=== PATIENT | female | born 1980 | race Caucasian/White ===

== ENCOUNTER 2017-04-08 11:31 | Emergency (ER) | payer MEDICAID ==
[~2017-04-08] VITALS: Ht 165.1 cm; Wt 70.9 kg
[~2017-04-08 11:31] MED LIST: BUTA1CAP59 PO; CYCL5TAB PO; DISALCID PO; GABA-827 PO; GABA300C10 PO; GABA800T2 PO; INDO50CA PO; LAMO150T PO; MECL-76 PO; ONDA8TAB12 PO; ROPI0.2537 PO; SALS750T11 PO; SERT50TA PO; SUMA100T4 PO; TRAZ100T15 PO
[2017-04-08 11:34] VITALS: BP 131/81
[2017-04-08] MEDS ORDERED: KETOROLAC 30 MG/1 ML ONE (12:33)
[2017-04-08] MEDS ORDERED: HYDROcodone/APAP 5/325 TABLET ONE (12:33)
[2017-04-08] MEDS ORDERED: HYDROcodone/APAP 5/325 TABLET PO PRN (13:00)
[2017-04-08] MEDS ORDERED: KETOROLAC 30 MG/1 ML IM ONE (13:00)
== END 2017-04-08 13:11 | disposition home or self-care (01) ==
LOC: ED 12:50
DX: M25.551 Pain in right hip (principal); F17.200 Nicotine dependence, unspecified, uncomplicated; G43.909 Migraine, unspecified, not intractable, without status migrainosus; Z90.49 Acquired absence of other specified parts of digestive tract
CPT/HCPCS: 73502; 96372; 99284; J1885

== ENCOUNTER 2017-05-01 14:18 | Emergency (ER) | payer MEDICAID ==
[~2017-05-01] VITALS: Ht 165.1 cm; Wt 68.5 kg
[~2017-05-01 14:18] MED LIST changes: -LAMO150T PO; +LAMO150T2 PO
[2017-05-01] MEDS ORDERED: ONDANSETRON ODT 4 MG ONE (18:30)
[2017-05-01] MEDS ORDERED: ACETAMINOPHEN 325 MG TABLET PO ONE (18:30)
[2017-05-01] MEDS ORDERED: ONDANSETRON ODT 4 MG PO ONE (18:30)
[2017-05-01] MEDS ORDERED: ACETAMINOPHEN 325 MG TABLET ONE (18:30)
[2017-05-01 18:34] VITALS: BP 132/82
== END 2017-05-01 18:36 | disposition home or self-care (01) ==
LOC: ED 16:49
DX: S06.0X1A Concussion with loss of consciousness of 30 minutes or less, initial encounter (principal); R58 Hemorrhage, not elsewhere classified; W01.0XXA Fall on same level from slipping, tripping and stumbling without subsequent striking against object, initial encounter; Y93.89 Activity, other specified; Y92.89 Other specified places as the place of occurrence of the external cause; Y99.9 Unspecified external cause status
CPT/HCPCS: 70450; 72125; 99284; Q0162

== ENCOUNTER 2018-02-07 13:42 | Emergency (ER) | payer MEDICAID ==
[~2018-02-07] VITALS: Ht 165.1 cm; Wt 70.5 kg
[~2018-02-07 13:42] MED LIST changes: -INDO50CA PO; +INDO50CA5 PO; -ROPI0.2537 PO; +ROPI0.254 PO; +TRAZ-137 PO; -TRAZ100T15 PO
[2018-02-07 13:58] VITALS: BP 119/80
[2018-02-07] MEDS ORDERED: KETOROLAC 30 MG/1 ML ONE (14:12)
[2018-02-07] MEDS ORDERED: SERT100T PO (14:22)
[2018-02-07] MEDS ORDERED: CARI350T PO (14:23)
[2018-02-07] MEDS ORDERED: CYCL5TAB PO (14:23)
[2018-02-07] MEDS ORDERED: ALBU0.63 NEB (14:24)
[2018-02-07] MEDS ORDERED: BACL20TA PO (14:24)
[2018-02-07] MEDS ORDERED: BUSP5TAB2 PO (14:24)
[2018-02-07] MEDS ORDERED: ONDA8TAB9 PO (14:24)
[2018-02-07] MEDS ORDERED: KETOROLAC 30 MG/1 ML IM ONE (14:30)
[2018-02-07 14:41] LABS: RAPID INFLUENZA A Negative (Negative); RAPID INFLUENZA B Negative (Negative)
== END 2018-02-07 15:00 | disposition home or self-care (01) ==
LOC: ED 14:45
DX: J00 Acute nasopharyngitis [common cold] (principal); J45.909 Unspecified asthma, uncomplicated; G43.909 Migraine, unspecified, not intractable, without status migrainosus
CPT/HCPCS: 71046; 87400; 96372; 99285; J1885

== ENCOUNTER 2018-02-12 11:25 | Emergency (ER) | payer MEDICAID ==
[~2018-02-12] VITALS: Ht 165.1 cm; Wt 71.8 kg
[~2018-02-12 11:25] MED LIST changes: +ALBU0.63 NEB; +BACL20TA PO; +BUSP5TAB2 PO; +CARI350T PO; +ONDA8TAB9 PO; +SERT100T PO
[2018-02-12] MEDS ORDERED: SODIUM CHLORIDE FLUSH 10ML SYR IVF ONE (12:00)
[2018-02-12] MEDS ORDERED: MORPHINE SULFATE 4 MG/ML, 1ML ONE ×2 (12:07→16:50)
[2018-02-12] MEDS: MORPHINE SULFATE 4 MG/ML, 1ML IVPush PRN ×2 (12:14→16:52)
[2018-02-12 12:19] LABS: BASOPHILS # (AUTO) 0.04 x10^3/uL (0-0.1); BASOPHILS % (AUTO) 1 % (0-1); EOSINOPHILS # (AUTO) 0.06 x10^3/uL (0-0.4); EOSINOPHILS % (AUTO) 1 % (1-7); LYMPHOCYTES # (AUTO) 4.17 x10^3/uL (1-3.4); LYMPHOCYTES % (AUTO) 47 % (22-44); MD NO; MEAN CORPUSCULAR HEMOGLOBIN 32.3 pg (27.0-34.8); MEAN CORPUSCULAR HGB CONC 34.5 g/dL (32.4-35.8); MEAN CORPUSCULAR VOLUME 93.5 fL (80-100); MEAN PLATELET VOLUME 7.7 fL (7.4-10.4); MONOCYTES # (AUTO) 0.69 x10^3/uL (0.2-0.8); MONOCYTES % (AUTO) 8 % (2-9); NEUTROPHILS # (AUTO) 3.85 x10^3/uL (1.8-6.8); NEUTROPHILS % (AUTO) 44 % (42-75); PLATELET COUNT 283 x10^3/uL (130-400); RED BLOOD COUNT 4.68 x10^6/uL (3.82-5.3); RED CELL DISTRIBUTION WIDTH 13.3 % (9.6-15.2)
[2018-02-12 12:27] LABS: ALANINE AMINOTRANSFERASE 62 U/L (12-78); ALBUMIN 3.5 g/dL (3.4-5.0); ANION GAP 6 mmol/L (5-15); CALCIUM 8.4 mg/dL (8.5-10.1); CHLORIDE 110 mmol/L (98-107); CREATININE 0.75 mg/dL (0.55-1.02)
[2018-02-12 12:29] LABS: ALKALINE PHOSPHATASE 49 U/L (45-117); BILIRUBIN,TOTAL 0.3 mg/dL (0.2-1.0); TOTAL PROTEIN 7.5 g/dL (6.4-8.2)
[2018-02-12] MEDS ORDERED: METOCLOPRAMIDE 5 MG/ML, 2ML IVPush ONE (12:30)
[2018-02-12] MEDS ORDERED: SODIUM CHLORIDE 0.9% 1,000ML IVBOLUS ONE (12:30)
[2018-02-12] MEDS ORDERED: METOCLOPRAMIDE 5 MG/ML, 2ML ONE (12:31)
[2018-02-12] MEDS ORDERED: KETOROLAC 30 MG/1 ML IVPush ONE (13:00)
[2018-02-12] MEDS ORDERED: KETOROLAC 30 MG/1 ML ONE (13:11)
[2018-02-12 15:59] LABS: CULTURE INDICATED? YES; MICROSCOPIC INDICATED
[2018-02-12 16:53] VITALS: BP 113/52
== END 2018-02-12 17:14 | disposition home or self-care (01) ==
LOC: ED 16:17
DX: N83.201 Unspecified ovarian cyst, right side (principal); J45.909 Unspecified asthma, uncomplicated; G43.909 Migraine, unspecified, not intractable, without status migrainosus; Z90.49 Acquired absence of other specified parts of digestive tract; F17.200 Nicotine dependence, unspecified, uncomplicated
CPT/HCPCS: 36415; 74176; 76830; 80053; 81001; 83690; 85025; 87077; 87086; 87186; 96374; 96375; 96376; 99285; J1885; J2765; J7030

== ENCOUNTER 2018-02-12 23:11 | Inpatient (IN) | payer MEDICAID ==
[~2018-02-12] VITALS: Ht 165.1 cm; Wt 77.5 kg
[2018-02-13] MEDS ORDERED: SODIUM CHLORIDE FLUSH 10ML SYR IVF ONE
[2018-02-13] MEDS ORDERED: METOCLOPRAMIDE 5 MG/ML, 2ML IVPush ONE
[2018-02-13] MEDS ORDERED: HYDROmorphone 2 MG/ML, 1ML ONE (00:03)
[2018-02-13] MEDS ORDERED: METOCLOPRAMIDE 5 MG/ML, 2ML ONE (00:03)
[2018-02-13] MEDS ORDERED: SODIUM CHLORIDE 0.9% 1,000 ML IV ONE (00:22)
[2018-02-13] MEDS ORDERED: SODIUM CHLORIDE FLUSH 10ML SYR IVF PRN (00:30)
[2018-02-13] MEDS ORDERED: HYDROmorphone 2 MG/ML, 1ML IVPush PRN ×2 (00:30)
[2018-02-13] MEDS ORDERED: ONDANSETRON 2MG/ML, 2ML IVPush PRN (00:30)
[2018-02-13 01:01] VITALS: BP 107/66
[2018-02-13 01:10] VITALS: BP 107/66
[2018-02-13] MEDS ORDERED: SODIUM CHLORIDE 0.9% 1,000 ML IV SCH ×2 (02:30→09:30)
[2018-02-13] MEDS: OXYcodone/APAP 5/325MG TABLET PO PRN ×5 (02:42→22:39)
[2018-02-13] MEDS ORDERED: ALBUTEROL SULFATE 2.5MG/0.5ML HOMEINH PRN (04:00)
[2018-02-13] MEDS: ONDANSETRON 8 MG TABLET PO PRN (08:26)
[2018-02-13] MEDS: SERTRALINE 100MG TABLET PO SCH (08:26)
[2018-02-13] MEDS: BACLOFEN 10 MG TABLET PO SCH (08:26)
[2018-02-13] MEDS: CYCLOBENZAPRINE 10 MG TABLET PO SCH (08:26)
[2018-02-13] MEDS: BUSPIRONE 5 MG TABLET PO SCH (08:26)
[2018-02-13 08:45] VITALS: BP 111/73
[2018-02-13] MEDS ORDERED: morphine SULFATE 10 MG/ML, 1ML IVPush PRN ×2 (13:00→17:00)
[2018-02-13 14:10] VITALS: BP 114/71
[2018-02-13] MEDS: CARISOPRODOL 350 MG TABLET PO SCH (19:53)
[2018-02-13] MEDS: morphine SULFATE 10 MG/ML, 1ML IVPush PRN (19:54)
[2018-02-13 20:00] VITALS: BP 118/74
[2018-02-13] MEDS: TRAZODONE 100MG TABLET PO PRN (22:39)
[2018-02-14 00:16] VITALS: BP 113/70
[2018-02-14] MEDS: ONDANSETRON 8 MG TABLET PO PRN (00:18)
[2018-02-14] MEDS: morphine SULFATE 10 MG/ML, 1ML IVPush PRN ×5 (00:18→22:50)
[2018-02-14 08:00] VITALS: BP 105/67
[2018-02-14] MEDS: SERTRALINE 100MG TABLET PO SCH (09:00)
[2018-02-14] MEDS: BACLOFEN 10 MG TABLET PO SCH (09:00)
[2018-02-14] MEDS: CYCLOBENZAPRINE 10 MG TABLET PO SCH (09:00)
[2018-02-14] MEDS: BUSPIRONE 5 MG TABLET PO SCH (09:00)
[2018-02-14] MEDS: OXYcodone/APAP 5/325MG TABLET PO PRN ×2 (09:52→21:14)
[2018-02-14] MEDS ORDERED: BUPIVACAINE/PF-EPI 0.5% 1:200K ONE (11:28)
[2018-02-14] MEDS ORDERED: INTERCEED 3 X 4 INCH DRESSING ONE (11:29)
[2018-02-14] MEDS ORDERED: MIDAZOLAM 1 MG/ML, 2ML ONE (11:56)
[2018-02-14] MEDS ORDERED: FENTANYL PF 100 MCG/2ML ONE ×3 (11:56→13:52)
[2018-02-14] MEDS ORDERED: CEFAZOLIN 1,000 MG ONE (12:00)
[2018-02-14] MEDS ORDERED: KETOROLAC 30 MG/1 ML ONE ×2 (12:00→12:49)
[2018-02-14] MEDS ORDERED: EPHEDRINE 50 MG/ML, 1ML ONE (12:30)
[2018-02-14] MEDS ORDERED: PROPOFOL 10 MG/ML, 20ML ONE (12:34)
[2018-02-14] MEDS ORDERED: SUCCINYLCHOLINE 20 MG/ML, 10ML ONE (12:34)
[2018-02-14] MEDS ORDERED: DEXAMETHASONE 4 MG/ML, 1ML ONE ×2 (12:44)
[2018-02-14] MEDS ORDERED: ONDANSETRON 2MG/ML, 2ML ONE (12:55)
[2018-02-14] MEDS ORDERED: ALBUTEROL SULFATE 2.5 MG/3 ML NPPB PRN (13:00)
[2018-02-14] MEDS ORDERED: ACETAMINOPHEN 325 MG TABLET PO PRN (13:00)
[2018-02-14] MEDS ORDERED: LABETALOL 5MG/ML, 20ML IV PRN (13:00)
[2018-02-14] MEDS ORDERED: MIDAZOLAM 1 MG/ML, 2ML IV PRN (13:00)
[2018-02-14] MEDS ORDERED: HYDROmorphone 1 MG/ML, 1ML IV PRN (13:00)
[2018-02-14] MEDS ORDERED: OXYcodone 5 MG/5 ML ORAL.SOL UDC PO PRN (13:00)
[2018-02-14] MEDS ORDERED: SCOPOLAMINE PATCH, 1.5MG PATCH.TD72 TD PRN (13:00)
[2018-02-14] MEDS ORDERED: LORazepam 2 MG/ML, 1ML IVPush PRN (13:00)
[2018-02-14] MEDS ORDERED: OXYcodone 5 MG/5 ML ORAL.SOL UDC ONE (13:35)
[2018-02-14] MEDS ORDERED: MEPERIDINE/PF 50 MG/ML ONE (13:35)
[2018-02-14] MEDS: MEPERIDINE/PF 25MG/0.5ML IVPush PRN ×2 (13:37→13:50)
[2018-02-14] MEDS: FENTANYL PF 100 MCG/2ML IV PRN ×2 (13:55→14:05)
[2018-02-14] MEDS ORDERED: ONDANSETRON 2MG/ML, 2ML IVPush PRN (15:00)
[2018-02-14] MEDS ORDERED: ONDANSETRON 4 MG TABLET PO PRN (15:00)
[2018-02-14] MEDS ORDERED: D5%-LACTATED RINGERS 1,000 ML IV SCH (15:00)
[2018-02-14] MEDS: D5%-LACTATED RINGERS 1,000 ML IV SCH ×2 (16:17→23:48)
[2018-02-14 20:00] VITALS: BP 115/76
[2018-02-14] MEDS: CARISOPRODOL 350 MG TABLET PO SCH (21:14)
[2018-02-14] MEDS: TRAZODONE 100MG TABLET PO PRN (21:14)
[2018-02-15 02:00] VITALS: BP 111/63
[2018-02-15] MEDS: morphine SULFATE 10 MG/ML, 1ML IVPush PRN (05:33)
[2018-02-15 06:29] VITALS: BP 101/64
[2018-02-15] MEDS: BUSPIRONE 5 MG TABLET PO SCH (09:03)
[2018-02-15] MEDS: CYCLOBENZAPRINE 10 MG TABLET PO SCH (09:03)
[2018-02-15] MEDS: SERTRALINE 100MG TABLET PO SCH (09:03)
[2018-02-15] MEDS: OXYcodone/APAP 5/325MG TABLET PO PRN (09:04)
[2018-02-15] MEDS: BACLOFEN 10 MG TABLET PO SCH (09:04)
[2018-02-15] MEDS ORDERED: NITR100C56 PO ×3 (11:00→11:19)
[2018-02-15] MEDS ORDERED: OXYC-302 PO (11:34)
== END 2018-02-15 11:41 | disposition home or self-care (01) | DRG 743 ==
LOC: ED 23:52 → EDIP 02-13 00:22 → 4EST 02-13 01:21 → DCLOUNGE 02-15 11:33
PROVIDERS: ADMIT Obstetrics & Gynecology; ATTEND Obstetrics & Gynecology
PROC: 0UT04ZZ Resection of Right Ovary, Percutaneous Endoscopic Approach (ICD-10-PCS; principal; 2018-02-14 12:00)
DX: N83.8 Other noninflammatory disorders of ovary, fallopian tube and broad ligament (principal); R23.0 Cyanosis; N30.90 Cystitis, unspecified without hematuria; J45.909 Unspecified asthma, uncomplicated; F17.210 Nicotine dependence, cigarettes, uncomplicated; B96.20 Unspecified Escherichia coli [E. coli] as the cause of diseases classified elsewhere; G62.9 Polyneuropathy, unspecified; M19.90 Unspecified osteoarthritis, unspecified site; G43.909 Migraine, unspecified, not intractable, without status migrainosus; Z90.710 Acquired absence of both cervix and uterus; Z87.442 Personal history of urinary calculi; Z88.6 Allergy status to analgesic agent; Z88.0 Allergy status to penicillin; Z79.899 Other long term (current) drug therapy
CPT/HCPCS: 99285; J7121; 88305; 96374; 96375; G0378; J0690; J1100; J1170; J1885; J2175; J2250; J2405; J2704; J3010; Q0162; J0330; J2270; J2765; J7030